=== PATIENT | male | born 1985 | race Caucasian/White ===

== ENCOUNTER 2018-03-26 16:58 | Emergency (ER) | payer MEDICARE, OTHER ==
[2018-03-26 17:03] VITALS: BP 130/74; PULSE 64; RESP 20; TEMP 97.4
--- NOTE | 2018-03-26 17:44 | XR ---
EXAMINATION TYPE: XR foot complete RT DATE OF EXAM: 03/26/2018 COMPARISON: NONE HISTORY: Foot pain TECHNIQUE: 3 views FINDINGS: There is nondisplaced fracture of the head of the third metatarsal. There is nondisplaced o blique fracture of the proximal phalanx of the big toe. There is no dislocation. IMPRESSION: Acute fractures as above of the third metatarsal and the big toe.
--- NOTE | 2018-03-26 17:47 | ED ---
General Adult HPI - General Chief complaint: Extremity Injury, Lower Stated complaint: Toe Pain Time Seen by Provider: 03/26/18 17:12 Source: patient, RN notes reviewed Mode of arrival: ambulatory Limitations: no limitations - History of Present Illness Initial comments: 33-year-old male presents to the emergency department for a chief complaint of right great toe pain 2 days. Patient states he was walking 2 days ago when he stubbed his toe on a dresser. Patient denies any other injuries. Patient states he has been walking on it but was concerned because it was increasing in swelling. Patient states he has tried Motrin and icing it and has been elevating it as well. Patient states he also takes [place] for pain as prescribed by pain management. Patient denies any pain in the ankle or knee.Patient has no other complaints at this time including shortness of breath , chest pain, abdominal pain, nausea or vomiting, headache, or visual changes. - Related Data Home Medications Medication Instructions Recorded Confirmed Hydrocodone/Acetaminophen [[place] 1 tab PO TID PRN 06/08/16 08/25/16 7.5-325] Previous Rx's Medication Instructions Recorded Acetaminophen with Codeine 1 tab PO Q4H #20 tab 08/25/16 [Tylenol w/codeine #3] Azithromycin [Zithromax Z-pack] 0 mg PO DIRECTED #6 tab 08/25/16 Ibuprofen [Motrin] 600 mg PO Q8HR #30 tab 08/25/16 Ondansetron HCl [Zofran] 4 mg PO Q8HR #30 tab 08/25/16 Allergies Allergy/AdvReac Type Severity Reaction Status Date / Time No Known Allergies Allergy Verified 03/26/18 17:03 Review of Systems ROS Statement: Those systems with pertinent positive or pertinent negative responses have been documented in the HPI. ROS Other: All systems not noted in ROS Statement are negative. Past Medical History Past Medical History: No Reported History Additional Past Medical History / Comment(s): back pain, scoliosis History of Any Multi-Drug Resistant Organisms: None Reported Past Surgical History: No Surgical Hx Reported Past Psychological History: No Psychological Hx Reported Smoking Status: Never smoker Past Alcohol Use History: None Reported Past Drug Use History: Marijuana General Exam Limitations: no limitations General appearance: alert, in no apparent distress Head exam: Present: atraumatic Eye exam: Present: normal appearance ENT exam: Present: normal exam, mucous membranes moist Neck exam: Present: normal inspection, full ROM. Absent: tenderness, meningismus, lymphadenopathy Respiratory exam: Present: normal lung sounds bilaterally. Absent: respiratory distress, wheezes, rales, rhonchi, stridor Cardiovascular Exam: Present: regular rate, normal rhythm, normal heart sounds. Absent: systolic murmur, diastolic murmur, rubs, gallop, clicks Extremities exam: Present: tenderness (Tenderness to the right great toe. No tenderness in the right foot. No tenderness in the right ankle.), normal capillary refill (Refill less than 2 seconds and pedal pulse 2+ in the right lower extremity.), joint swelling (Patient does have moderate swelling of the right foot and right toe. Ecchymosis noted of the right great toe.), other ( Sensation intact in the right lower extremity.). Absent: full ROM (Patient has limited range of motion of the right great toe to about 10 plantar and dorsi flexion. Full range of motion of the right ankle. ), calf tenderness (No tenderness noted in the calf. Negative Homans sign.) Course Vital Signs 03/26/18 17:02 Temperature 97.4 F L Pulse Rate 64 Respiratory 20 Rate Blood Pressure 130/74 O2 Sat by Pulse 99 Oximetry Procedures - Procedures Initial comment: Neurovascular intact before splint application Indication: Great toe fracture, third metatarsal head fracture Type: Short leg posterior Wounds: no abrasions or lacerations underneath splint Neurovascular status: patient has sensation and movement of digits extending outside the splint, there is no cyanosis, capillary refill < 2 seconds Follow-up: patient given number for orthopedics and instructed to phone to make an appointment. Patient aware he can return to the Emergency Department if any difficulties. Medical Decision Making - Medical Decision Making 33-year-old male presents for right foot pain after kicking a dresser 2 days ago. Patient does have moderate swelling and ecchymosis noted of the right foot and great toe. Neurovascular intact. X-ray of right foot shows a nondisplaced fracture of the head of the third metatarsal. There is a nondisplaced oblique fracture of the proximal phalanx of the big toe. Short leg posterior splint applied. Splint applied to 90 angle. Patient has crutches at home that he will use. He will follow up with orthopedics in one to 2 days. Patient has Motrin and [place] at home that he can take for pain. He is aware he can return to the emergency department if he has any worsening symptoms. Disposition Clinical Impression: Toe fracture, right, Metatarsal fracture Disposition: HOME SELF-CARE Condition: Good Instructions: Toe Fracture (ED), Foot Fracture in Adults (ED) Additional Instructions: Rest, ice, and elevate the right foot. Take Motrin for pain. If pain is severe take [place] as prescribed by pain management. Follow up with orthopedics in one to 2 days. Return to the emergency department if you have any worsening symptoms. Is patient prescribed a controlled substance at d/c from ED?: No Referrals: Pam Menjivar MD [Primary Care Provider] - 1-2 days Abdias Quigley DO [Doctor of Osteopathic Medicine] - 1-2 days
== END 2018-03-26 18:44 | disposition home or self-care (01) ==
LOC: EC 16:58
DX: S92.334A Nondisplaced fracture of third metatarsal bone, right foot, initial encounter for closed fracture (principal); W22.03XA Walked into furniture, initial encounter; Y92.009 Unspecified place in unspecified non-institutional (private) residence as the place of occurrence of the external cause
CPT/HCPCS: 29515; 99283

== ENCOUNTER → 2018-04-10 | Outpatient (CLI) | payer MEDICARE, OTHER ==
--- NOTE | 2018-04-11 06:59 | CT ---
EXAMINATION TYPE: CT foot RT wo con DATE OF EXAM: 04/10/2018 COMPARISON: Right foot x-ray March 26, 2018 HISTORY: Displaced fracture right first toe. Pain in right foot. Automated exposure control for dose reduction was used. FINDINGS: Correlating with x-ray there is acute comminuted displaced impacted fracture involving the distal one third of the first proximal phalanx. Seen best on sagittal image 59 there is distal fracture fragmen t measuring 1.4 x 0.6 cm that shows slight impaction with dorsal and lateral angulation having intra- articular extension to the first interphalangeal joint. There is second additional 8mm smaller fracture fragment medially that is dorsally displaced sagittal image 56. Hallex valgus positioning is redemonstrated first metatarsophalangeal joint. No additional fracture is seen. I do not see nondisplaced fracture through head of third metatarsal. Other joint spaces are preserved. Flexion in the toes is redemonstrated. IMPRESSION: COMMINUTED DISPLACED INTRA-ARTICULAR FRACTURE INVOLVING DISTAL ONE THIRD OF FIRST PROXIMAL PHALANX DETAILED ABOVE
== END | disposition home or self-care (01) ==
LOC: RADCTMAIN 18:24
PROVIDERS: ATTEND Orthopaedic Surgery
DX: S92.411D Displaced fracture of proximal phalanx of right great toe, subsequent encounter for fracture with routine healing (principal)

== ENCOUNTER → 2022-06-21 | Outpatient (CLI) | payer MEDICARE, OTHER ==
--- NOTE | 2022-06-22 08:40 | MR ---
EXAMINATION TYPE: MR lumbar spine wo/w con DATE OF EXAM: 06/21/2022 COMPARISON: None HISTORY: Low back pain CONTRAST: 9.5 mL intravenous Gadavist. TECHNIQUE: Multiplanar, multisequence images of the lumbar spine were acquired. FINDINGS: L5-S1: Disc desiccation is present. There is loss of disc height this level. Broad-based disc bulge a nd central disc protrusion is present. This comes in close approximation with the thecal sac. Some co ntact with the exiting right S1 nerve root is present. Correlate with radicular symptoms. L4-L5: Mild broad central disc bulge is present with mild anterior thecal sac compression. No AP spin al canal stenosis present. Facet hypertrophy is present. Neural foramen are patent. Some disc extensi on beyond the endplate is L5 is present. L3-L4: No significant disc bulge or disc herniation. No spinal canal stenosis. No foraminal stenosi s. Neural foramen are patent.. L2-L3: No significant disc bulge or disc herniation. No spinal canal stenosis. No foraminal stenosi s. Neural foramen are patent.. L1-L2: No significant disc bulge or disc herniation. No spinal canal stenosis. No foraminal stenosi s. Neural foramen are patent.. T12-L1: No significant disc bulge or disc herniation. No spinal canal stenosis. No foraminal stenos is. Neural foramen are patent. Cord terminates at the L1 level. Following contrast, no abnormal enhancement is evident. IMPRESSION: 1. Loss of disc height with broad-based disc bulge and mild anterior thecal sac compression at L5-S1. There may be some contact with the exiting right S1 nerve root. Correlate with radicular symptoms. 2. Small central disc protrusion with extension beyond the endplate at L4-5 can be compatible with sm all subligamentous disc herniation with mild to moderate anterior thecal sac compression. No stenosis is present.
== END | disposition home or self-care (01) ==
LOC: RADMRIMAIN 10:40
PROVIDERS: ATTEND Physical Medicine & Rehabilitation
DX: M51.36 Other intervertebral disc degeneration, lumbar region (principal); M51.26 Other intervertebral disc displacement, lumbar region
CPT/HCPCS: 72158; A9585